=== PATIENT | female | born 1940 | race Caucasian/White ===

== ENCOUNTER 2016-09-22 17:22 | Emergency (ER) | payer MEDICARE ==
[~2016-09-22] VITALS: Ht 179.1 cm; Wt 67.6 kg
[2016-09-22 18:00] LABS: HEMOGLOBIN 13.3 g/dL (11.7-16.4)
[2016-09-22 18:14] LABS: ASPARTATE AMINO TRANSFERASE 21 U/L (15-37); BLOOD UREA NITROGEN 10 mg/dL (7-18)
[2016-09-22 18:19] LABS: IS PT STATUS REG ER OR PRE ER? YES
[2016-09-22 18:48] VITALS: BP 132/55
== END 2016-09-22 18:51 | disposition home or self-care (01) ==
LOC: ED 18:43
DX: K21.9 Gastro-esophageal reflux disease without esophagitis (principal); M81.0 Age-related osteoporosis without current pathological fracture
CPT/HCPCS: 36415; 71020; 80053; 84484; 85025; 93005; 99285

== ENCOUNTER → 2019-11-29 | Outpatient (CLI) | payer MEDICARE | END | disposition home or self-care (01) | LOC: CFH 07:54 | PROVIDERS: ATTEND Internal Medicine Cardiovascular Disease | DX: I35.8 Other nonrheumatic aortic valve disorders (principal); R53.83 Other fatigue; Z82.49 Family history of ischemic heart disease and other diseases of the circulatory system | CPT/HCPCS: 78452; 93017; 93306; A9502 ==